=== PATIENT | male | born 1965 | race Caucasian/White ===

== ENCOUNTER 2016-09-01 13:31 | Emergency (ER) | payer OTHER | END 2016-09-01 14:25 | disposition home or self-care (01) | LOC: FER 13:31 | DX: S00.06XA Insect bite (nonvenomous) of scalp, initial encounter (principal); S20.461A Insect bite (nonvenomous) of right back wall of thorax, initial encounter; E11.9 Type 2 diabetes mellitus without complications; I10 Essential (primary) hypertension; E78.5 Hyperlipidemia, unspecified; Z88.1 Allergy status to other antibiotic agents; Z98.61 Coronary angioplasty status; Z79.84 Long term (current) use of oral hypoglycemic drugs; Z79.899 Other long term (current) drug therapy; W57.XXXA Bitten or stung by nonvenomous insect and other nonvenomous arthropods, initial encounter | CPT/HCPCS: 99282 ==

== ENCOUNTER 2020-12-11 15:41 | Emergency (ER) | payer OTHER ==
[~2020-12-11] VITALS: Ht 175.3 cm; Wt 90.7 kg
[2020-12-11 16:19] LABS: HCT 43.8 % (42.0-52.0); HGB 14.3 g/dl (13.2-18.0); LYMPHOCYTE 39.3 % (15-48); MCH 30.7 pg (25.0-31.0); MCHC 32.6 g/dL (32.0-36.0); MONOCYTE 8.9 % (0-12); NEUTROPHIL 49.5 % (41-80); NRBC 0; PLT 190 K/uL (150-400); RBC 4.66 M/uL (4.70-6.00); RDW 13.2 % (11.5-14.0); WBC 6.2 K/uL (4.0-10.5)
[2020-12-11 16:41] LABS: BUN/CREAT RATIO (CALC) 17.2 RATIO; CREATININE 0.87 mg/dL (0.67-1.17); POTASSIUM 4.9 mmol/L (3.5-5.1)
== END 2020-12-11 17:35 | disposition home or self-care (01) ==
LOC: FER 15:41
PROVIDERS: Nurse Practitioner Family
DX: R04.0 Epistaxis (principal); I10 Essential (primary) hypertension; E11.9 Type 2 diabetes mellitus without complications
CPT/HCPCS: 36415; 80048; 85025; 99283